=== PATIENT | female | born 1995 | race Caucasian/White ===

== ENCOUNTER 2021-08-01 09:50 | Emergency (ER) | payer OTHER ==
[~2021-08-01] VITALS: Ht 149.9 cm; Wt 56.7 kg
[2021-08-01] MEDS ORDERED: KETOROLAC 30 MG/ML 1ML VIAL IM ONE (11:35)
[2021-08-01] MEDS ORDERED: CYCLOBENZAPRINE 5MG TABLET PO ONE (11:35)
[2021-08-01] MEDS ORDERED: CYCL5TAB PO (12:26)
[2021-08-01 12:35] VITALS: BP 105/60
== END 2021-08-01 12:37 | disposition home or self-care (01) ==
LOC: M ED 09:50
DX: M54.50 Low back pain, unspecified (principal)
CPT/HCPCS: 96372; 99283; J1885

== ENCOUNTER → 2021-08-08 | Outpatient (CLI) | payer OTHER ==
[~2021-08-08] MED LIST: CYCL5TAB PO; ISOVUE-300 61% 50ML VIAL As Ordered ONE; ISOVUE-M 300 61% 15ML VIAL As Ordered ONE; LIDOCAINE 1% MDV 20ML VIAL As Ordered ONE; TRIAMCINOLONE ACETONIDE SUSP 40 MG/ML VIAL (J3301) As Ordered ONE
== END ==
LOC: M RADPRO 15:19
PROVIDERS: ATTEND Physician Assistant Surgical
DX: S73.121A Ischiocapsular ligament sprain of right hip, initial encounter (principal); X58.XXXA Exposure to other specified factors, initial encounter; Y92.9 Unspecified place or not applicable
CPT/HCPCS: 20610; 76000; J3301; Q9967